=== PATIENT | female | born 1955 | race Caucasian/White ===

== ENCOUNTER 2017-07-21 22:25 | Observation (INO) | payer BC ==
[~2017-07-21] VITALS: Ht 167.6 cm; Wt 65.0 kg
[2017-07-21 22:40] VITALS: RESP 18
--- NOTE | 2017-07-21 22:54 | PD ---
HPI Chief Complaint: Chest Pain Time Seen by Provider: 22:52 Travel History International Travel<30 days: No Contact w/Intl Traveler<30days: No Traveled to known affect area: No History of Present Illness HPI Patient complains of having intermittent chest pressure associated with lightheadedness and radiating to her left jaw since last Sunday. Has approximately 6 days ago, patient states that the last episode was approximately an hour ago and rated as an 8 out of 10 1 of the worst ones that she has had this week. Patient stated that it radiated up to her left jaw and that she felt lightheaded and nauseous along with it. Patient denies any alleviating or aggravating factors. Patient denies any episodes of her previous heart catheterization. All her primary care is in [place] she is is visiting area. Stated allergy to sulfa causes hives Past medical significant for hypothyroidism, cholecystectomy, right shoulder rotator cuff repair, depression and insomnia. PFSH Past Medical History Depression: Yes Diminished Hearing: No Insomnia: Yes Thyroid Disease: Yes (hypothyriodism) Tetanus Vaccination: Unknown Influenza Vaccination: Yes ?: Not LMP: menapause Past Surgical History Cholecystectomy: Yes Social History Alcohol Use: Yes (weekends) Tobacco Use: No Substance Use: No Allergies-Medications (Allergen,Severity, Reaction): Coded Allergies: Sulfa (Sulfonamide Antibiotics) (Verified Allergy, Severe, 07/21/17) hives Review of Systems General / Constitutional: No: Fever Eyes: No: Visual changes HENT: No: Headaches Cardiovascular: Positive: Chest Pain or Discomfort Respiratory: No: Shortness of Breath Gastrointestinal: No: Abdominal Pain Genitourinary: No: Dysuria Musculoskeletal: No: Pain Skin: No Rash Neurologic: No: Weakness Psychiatric: No: Depression Endocrine: No: Polydipsia Hematologic/Lymphatic: No: Easy Bruising Physical Exam Narrative GENERAL: SKIN: Warm and dry. HEAD: Atraumatic. Normocephalic. EYES: Pupils equal and round. No scleral icterus. No injection or drainage. ENT: No nasal bleeding or discharge. Mucous membranes pink and moist. NECK: Trachea midline. No JVD. CARDIOVASCULAR: Regular rate and rhythm. RESPIRATORY: No accessory muscle use. Clear to auscultation. Breath sounds equal bilaterally. GASTROINTESTINAL: Abdomen soft, non-tender, nondistended. . MUSCULOSKELETAL: Extremities without clubbing, cyanosis, or edema. No obvious deformities. NEUROLOGICAL: Awake and alert. No obvious cranial nerve deficits. Motor grossly within normal limits. Five out of 5 muscle strength in the arms and legs. Normal speech. PSYCHIATRIC: Appropriate mood and affect; insight and judgment normal. Data Data Last Documented VS Vital Signs Date Time Temp Pulse Resp B/P (MAP) Pulse Ox O2 Delivery O2 Flow Rate FiO2 07/21/17 23:52 64 16 164/89 (114) 97 Room Air Orders Orders Electrocardiogram (07/21/17 22:52) B-Type Natriuretic Peptide (07/21/17 22:52) Ckmb (Isoenzyme) Profile (07/21/17 22:52) Complete Blood Count With Diff (07/21/17:52) Comprehensive Metabolic Panel (07/21/17:52) D-Dimer (07/21/17:52) Magnesium (Mg) (07/21/17 22:52) Prothrombin Time / Inr (Pt) (07/21/17:52) Act Partial Throm Time (Ptt) (07/21/17:52) Troponin I (07/21/17 22:52) Lipase (07/21/17 22:52) Chest, Single Ap (07/21/17 22:52) Ecg Monitoring (07/21/17:52) Bilateral Bp Monitoring (07/21/17:52) Iv Access Insert/Monitor (07/21/17:52) Oximetry (07/21/17 22:52) Sodium Chloride 0.9% Flush (Ns Flush) (07/21/17 23:00) Aspirin Chew (Aspirin Chew) (07/21/17 23:15) Nitroglycerin 2% Oint (Nitroglycerin 2% (07/21/17 23:15) CKMB (07/21/17 22:59) CKMB% (07/21/17 22:59) Labs Laboratory Tests Test 07/21/17 22:59 White Blood Count 6.0 TH/MM3 Red Blood Count 4.26 MIL/MM3 Hemoglobin 12.9 GM/DL Hematocrit 37.9 % Mean Corpuscular Volume 89.0 FL Mean Corpuscular Hemoglobin 30.4 PG Mean Corpuscular Hemoglobin Concent 34.2 % Red Cell Distribution Width 12.7 % Platelet Count 211 TH/MM3 Mean Platelet Volume 9.2 FL Neutrophils (%) (Auto) 59.0 % Lymphocytes (%) (Auto) 31.7 % Monocytes (%) (Auto) 7.6 % Eosinophils (%) (Auto) 1.1 % Basophils (%) (Auto) 0.6 % Neutrophils # (Auto) 3.5 TH/MM3 Lymphocytes # (Auto) 1.9 TH/MM3 Monocytes # (Auto) 0.5 TH/MM3 Eosinophils # (Auto) 0.1 TH/MM3 Basophils # (Auto) 0.0 TH/MM3 CBC Comment DIFF FINAL Differential Comment Prothrombin Time 10.6 SEC Prothromb Time International Ratio 1.0 RATIO Activated Partial Thromboplast Time 26.0 SEC D-Dimer Quantitative (PE/DVT) LESS THAN 0.19 MG/L FEU Blood Urea Nitrogen 11 MG/DL Creatinine 0.92 MG/DL Random Glucose 129 MG/DL Total Protein 7.6 GM/DL Albumin 4.1 GM/DL Calcium Level 8.5 MG/DL Magnesium Level 2.4 MG/DL Alkaline Phosphatase 64 U/L Aspartate Amino Transf (AST/SGOT) 12 U/L Alanine Aminotransferase (ALT/SGPT) 20 U/L Total Bilirubin 0.4 MG/DL Sodium Level 140 MEQ/L Potassium Level 3.9 MEQ/L Chloride Level 103 MEQ/L Carbon Dioxide Level 27.1 MEQ/L Anion Gap 10 MEQ/L Estimat Glomerular Filtration Rate 62 ML/MIN Total Creatine Kinase 128 U/L Creatine Kinase MB LESS THAN 0.5 NG/ML Troponin I LESS THAN 0.02 NG/ML B-Type Natriuretic Peptide 23 PG/ML Lipase 159 U/L MDM Medical Decision Making Medical Screen Exam Complete: Yes Emergency Medical Condition: Yes Medical Record Reviewed: Yes Interpretation(s) EKG shows normal sinus rhythm, with 69 bpm, normal intervals, there are some minimal ST flattening to minimal depression on the inferior lateral leads but without any concomitant ST elevation pattern. Differential Diagnosis STEMI versus non-STEMI versus pulmonary embolus versus pneumonia versus pneumothorax Narrative Course CBC shows no leukocytosis, no anemia, normal platelet count, no left shift Coagulation profile is within normal limits D-dimer is negative Elect lites are all within normal limits, normal kidney functions, normal liver functions, normal pancreatic functions First set of cardiac enzymes negative, normal beta natruretic peptide Diagnosis Primary Impression: Chest pain rule out HI Admitting Information Admitting Physician Requests: Observation Juanjose Draper MD July 21, 2017 22:54
[2017-07-21] MEDS ORDERED: SODIUM CHLORIDE 0.9% FLUSH 10 ML FLUSH IVF PRN (23:00)
[2017-07-21 23:13] LABS: AUTOMATED NEUTROPHIL # 3.5 TH/MM3 (1.8-7.7); BASOPHIL % 0.6 % (0.0-2.0); EOSINOPHIL # 0.1 TH/MM3 (0-0.4); EOSINOPHIL % 1.1 % (0.0-4.0); HEMATOCRIT 37.9 % (35.0-46.0); HEMOGLOBIN 12.9 GM/DL (11.6-15.3); LYMPH % 31.7 % (9.0-44.0); LYMPHOCYTE # 1.9 TH/MM3 (1.0-4.8); MEAN CORPUSCULAR HEMOGLOBIN 30.4 PG (27.0-34.0); MEAN CORPUSCULAR HGB CONC 34.2 % (32.0-36.0); MEAN PLATELET VOLUME 9.2 FL (7.0-11.0); MONO % 7.6 % (0.0-8.0); MONOCYTE # 0.5 TH/MM3 (0-0.9); PLATELET COUNT 211 TH/MM3 (150-450); RED BLOOD COUNT 4.26 MIL/MM3 (4.00-5.30); RED CELL DISTRIBUTION WIDTH 12.7 % (11.6-17.2)
[2017-07-21] MEDS ORDERED: ASPIRIN 81 MG CHEW TAB PO ONE (23:15)
[2017-07-21] MEDS ORDERED: NITROGLYCERIN 2% OINT 1 GM PACKET TOP ONE (23:15)
[2017-07-21 23:29] LABS: PROTHROMBIN TIME - PATIENT 10.6 SEC (9.8-11.6)
[2017-07-21 23:32] LABS: D-DIMER LESS THAN 0.19 MG/L FEU (0.00-0.50)
[2017-07-21 23:38] LABS: ALBUMIN 4.1 GM/DL (3.4-5.0); ALT (GPT) 20 U/L (10-53); AST (GOT) 12 U/L (15-37); BICARBONATE 27.1 MEQ/L (21.0-32.0); BLOOD UREA NITROGEN 11 MG/DL (7-18); CALCIUM 8.5 MG/DL (8.5-10.1); CHLORIDE 103 MEQ/L (98-107); CREATININE 0.92 MG/DL (0.50-1.00); GLOMERULAR FILTRATION RATE 62 ML/MIN (>89); GLUCOSE,RANDOM 129 MG/DL (74-106); MAGNESIUM 2.4 MG/DL (1.5-2.5); SODIUM (NA) 140 MEQ/L (136-145)
[2017-07-21 23:42] LABS: ALKALINE PHOSPHATASE 64 U/L (45-117); TOTAL BILIRUBIN ADULT 0.4 MG/DL (0.2-1.0); TOTAL PROTEIN 7.6 GM/DL (6.4-8.2); TROPONIN I LESS THAN 0.02 NG/ML (0.02-0.05)
[2017-07-21 23:52] VITALS: BP 164/89; PULSE 64; RESP 16; O2SAT 97
--- NOTE | 2017-07-21 23:52 | RADRPT ---
EXAM DATE: 07/21/2017 11:37 PM EDT AGE/SEX: 61 years / Female INDICATIONS: Chest pain and nausea. CLINICAL DATA: This is the patient's initial encounter. Patient reports that signs and symptoms have been present for 2 weeks and indicates a pain score of 3/10. MEDICAL/SURGICAL HISTORY: None. None. COMPARISON: No prior [facility] exams available for comparison. FINDINGS: A single AP view of the chest demonstrates the lungs to be symmetrically aerated without evidence of mass, infiltrate or effusion. The cardiomediastinal contours are unremarkable. Osseous structures a re intact. CONCLUSION: No evidence of acute cardiopulmonary disease. Electronically signed by: Bill Lowery MD 07/21/2017 11:50 PM EDT
[2017-07-22] MEDS ORDERED: NITROGLYCERIN 0.4 MG SL 25 TABS/BTL SL PRN (00:30)
[2017-07-22] MEDS ORDERED: ASPIRIN 81 MG CHEW TAB PO ONE (00:30)
[2017-07-22] MEDS ORDERED: SODIUM CHLORIDE 0.9% FLUSH 10 ML FLUSH IV FLUSH PRN (00:30)
[2017-07-22 00:34] VITALS: O2SAT 96
[2017-07-22 01:35] VITALS: BP 143/63; PULSE 64; RESP 16; O2SAT 97
[2017-07-22 02:45] LABS: TROPONIN I LESS THAN 0.02 NG/ML (0.02-0.05)
[2017-07-22 03:23] VITALS: BP 109/56; PULSE 63; RESP 16; TEMP 98.4; O2SAT 97
[2017-07-22 08:24] VITALS: BP 122/62; PULSE 65; RESP 19; TEMP 98; O2SAT 97
[2017-07-22] MEDS ORDERED: SODIUM CHLORIDE 0.9% FLUSH 10 ML FLUSH IV FLUSH SCH (09:00)
[2017-07-22] MEDS ORDERED: REGADENOSON INJ 0.4 MG/5 ML SYR ONE (09:47)
--- NOTE | 2017-07-22 09:49 | HHI.HP ---
HPI Primary Care Physician Non-Staff Chief Complaint Chest pain History of Present Illness This is a 61-year-old female that presents to ED via private vehicle with a clamp the chest pressure has been intermittent for 5 days. She points to left lateral chest area to indicate where the discomfort is located. Nothing in particular seems to bring on the pressure. Last a couple hours when it occurs. Usually been at nighttime. She tried Tums which worsen the symptoms. She has been nauseated with the symptoms and yesterday felt lightheaded. She became concerned when she became lightheaded and at that time decided to come into the hospital. Denies shortness of breath. She has had some episodes of sweating with the discomfort but she states she also has hot flashes and is not sure that because of it. She has had cardiac evaluation in the past. States she had a stress test a few years ago. States it started as a treadmill but then they had to convert to a different type of stress test. The second stress test was fine. Has never had a cardiac catheterization. Recently told that her lipid panel is a little bit elevated but no medication at this time. Review of Systems General: Patient denies fevers, chills, and recent travel. HEENT: Patient denies headache, sore throat, difficulty swallowing. Cardiovascular: Has the chest discomfort as mentioned above. Denies sensation of heart beating rapidly or irregularly. No syncope. Possible diaphoresis. Respiratory: Denies shortness of breath or inspirational chest discomfort. Denies coughing wheezing or hemoptysis. GI: She has been intermittently nauseous. Patient denies vomiting, diarrhea, abdominal pain, bloody stools. Musculoskeletal: Patient denies joint pain or edema. Denies calf pain or edema. Neurovascular: Patient denies numbness, tingling, weakness in extremities. Denies headache. Endocrine: Denies polyuria and polydipsia. Hematologic: Denies easy bruising. Skin: Denies rash or itching. Past Family Social History Allergies: Coded Allergies: Sulfa (Sulfonamide Antibiotics) (Verified Allergy, Severe, 07/21/17) hives Past Medical History Recently told of hyperlipidemia but currently no medication. Hypothyroidism. Denies hypertension, diabetes, and known CAD. Past Surgical History Cholecystectomy. Right shoulder rotator cuff repair. Active Ordered Medications Current Medications Medications (Trade) Dose Ordered Sig/Venkatesh Route Start Time Stop Time Status Last Admin (NS Flush) 2 ml UNSCH PRN IVF 07/21/17 23:00 07/21/17 23:18 (NS Flush) 2 ml UNSCH PRN IV FLUSH 07/22/17 00:30 (NS Flush) 2 ml BID IV FLUSH 07/22/17 09:00 (Nitrostat Sl) 0.4 mg Q5M PRN SL 07/22/17 00:30 Family History Denies family history of CAD. Social History Quit smoking about 25 years ago. She smoked approximately three-quarter pack of cigarettes daily prior to that for almost 20 years. States she has a few beers and a couple mixed drinks with vodka on the weekends. Denies illicit drug use. Physical Exam Vital Signs Vital Signs Date Time Temp Pulse Resp B/P (MAP) Pulse Ox O2 Delivery O2 Flow Rate FiO2 07/22/17 08:24 98.0 65 19 122/62 (82) 97 07/22/17 03:23 98.4 63 16 109/56 (73) 97 07/22/17 01:35 64 16 143/63 (89) 97 Room Air 07/22/17 00:34 96 07/21/17 23:52 64 16 164/89 (114) 97 Room Air 07/21/17 22:40 18 Physical Exam GENERAL: This is a well-nourished, well-developed patient, in no apparent distress. Patient speaks in clear complete sentences. Patient is pleasant. HEENT: Head is atraumatic and normocephalic. Neck is supple without lymphadenopathy and trachea is midline. No JVD or carotid bruits. CARDIOVASCULAR: Regular rate and rhythm without murmurs, gallops, or rubs. RESPIRATORY: Clear to auscultation. Breath sounds equal bilaterally. No wheezes , rales, or rhonchi. Chest wall is nontender. No use of accessory muscles. GASTROINTESTINAL: Abdomen is nontender, nondistended. Abdomen soft. No obvious pulsatile mass or bruit. No CVA tenderness. Strong femoral pulses bilaterally. Normal bowel sounds in all quadrants. MUSCULOSKELETAL: Patient is moving upper and lower extremities freely. No calf tenderness or edema, no Homans sign. Strong pulses in upper and lower extremities. NEUROLOGICAL: Patient is alert and oriented. Cranial nerves 2-12 are grossly intact. No focal deficits and speech is clear. SKIN: No rash and turgor is normal. Laboratory Laboratory Tests Test 07/21/17 22:59 07/22/17 02:15 07/22/17 05:00 White Blood Count 6.0 Red Blood Count 4.26 Hemoglobin 12.9 Hematocrit 37.9 Mean Corpuscular Volume 89.0 Mean Corpuscular Hemoglobin 30.4 Mean Corpuscular Hemoglobin Concent 34.2 Red Cell Distribution Width 12.7 Platelet Count 211 Mean Platelet Volume 9.2 Neutrophils (%) (Auto) 59.0 Lymphocytes (%) (Auto) 31.7 Monocytes (%) (Auto) 7.6 Eosinophils (%) (Auto) 1.1 Basophils (%) (Auto) 0.6 Neutrophils # (Auto) 3.5 Lymphocytes # (Auto) 1.9 Monocytes # (Auto) 0.5 Eosinophils # (Auto) 0.1 Basophils # (Auto) 0.0 CBC Comment DIFF FINAL Differential Comment Prothrombin Time 10.6 Prothromb Time International Ratio 1.0 Activated Partial Thromboplast Time 26.0 D-Dimer Quantitative (PE/DVT) LESS THAN 0.19 Blood Urea Nitrogen 11 Creatinine 0.92 Random Glucose 129 Total Protein 7.6 Albumin 4.1 Calcium Level 8.5 Magnesium Level 2.4 Alkaline Phosphatase 64 Aspartate Amino Transf (AST/SGOT) 12 Alanine Aminotransferase (ALT/SGPT) 20 Total Bilirubin 0.4 Sodium Level 140 Potassium Level 3.9 Chloride Level 103 Carbon Dioxide Level 27.1 Anion Gap 10 Estimat Glomerular Filtration Rate 62 Total Creatine Kinase 128 119 Creatine Kinase MB LESS THAN 0.5 LESS THAN 0.5 Troponin I LESS THAN 0.02 LESS THAN 0.02 LESS THAN 0.02 B-Type Natriuretic Peptide 23 Lipase 159 Result Diagram: 07/21/17225807/21/172258 Imaging Last 48 hours Impressions Chest X-Ray 07/21/172251 Signed Impressions: CONCLUSION: No evidence of acute cardiopulmonary disease. Course EKGs are sinus rhythm with nonspecific lateral ST-T changes. Caprini VTE Risk Assessment Caprini VTE Risk Assessment: No/Low Risk (score <= 1) Caprini Risk Assessment Model Point Value = 1 Point Value = 2 Point Value = 3 Point Value = 5 Age 41-60 Minor surgery BMI > 25 kg/m2 Swollen legs Varicose veins or History of unexplained or recurrent spontaneous Oral contraceptives or hormone replacement Sepsis (< 1 month) Serious lung disease, including pneumonia (< 1 month) Abnormal pulmonary function Acute myocardial infarction Congestive heart failure (< 1 month) History of inflammatory bowel disease Medical patient at bed rest Age 61-74 Arthroscopic surgery Major open surgery (> 45 min) Laparoscopic surgery (> 45 min) Malignancy Confined to bed (> 72 hours) Immobilizing plaster cast Central venous access Age >= 75 History of VTE Family history of VTE Factor V Leiden Prothrombin [id number] Lupus anticoagulant Anticardiolipin antibodies Elevated serum homocysteine Heparin-induced thrombocytopenia Other congenital or acquired thrombophilia Stroke (< 1 month) Elective arthroplasty Hip, pelvis, or leg fracture Acute spinal cord injury (< 1 month) Prophylaxis Regimen Total Risk Factor Score Risk Level Prophylaxis Regimen 0-1 Low Early ambulation 2 Moderate Order ONE of the following: *Sequential Compression Device (SCD) *Heparin 5000 units SQ BID 3-4 Higher Order ONE of the following medications: *Heparin 5000 units SQ TID *Enoxaparin/Lovenox 40 mg SQ daily (WT < 150 kg, CrCl > 30 mL/min) *Enoxaparin/Lovenox 30 mg SQ daily (WT < 150 kg, CrCl > 10-29 mL/min) *Enoxaparin/Lovenox 30 mg SQ BID (WT < 150 kg, CrCl > 30 mL/min) AND/OR *Sequential Compression Device (SCD) 5 or more Highest Order ONE of the following medications: *Heparin 5000 units SQ TID (Preferred with Epidurals) *Enoxaparin/Lovenox 40 mg SQ daily (WT < 150 kg, CrCl > 30 mL/min) *Enoxaparin/Lovenox 30 mg SQ daily (WT < 150 kg, CrCl > 10-29 mL/min) *Enoxaparin/Lovenox 30 mg SQ BID (WT < 150 kg, CrCl > 30 mL/min) AND *Sequential Compression Device (SCD) Assessment and Plan Assessment and Plan * Chest pain: Patient has had serial cardiac enzymes and EKGs for ruling out purposes. She will undergo a Lexiscan. She will be seen by Dr. Ray of cardiology in the chest pain center. Patient likely to be discharged home if her stress test is nonischemic with instructions to follow-up with PCP. Return to ED for interval issues. * Hypothyroidism: Patient will resume her medication. Patient is stable at this time. She is agreeable to this plan. Nilson Monte July 22, 2017 09:49
--- NOTE | 2017-07-22 12:34 | RADRPT ---
EXAM DATE: 07/22/2017 12:22 PM EDT AGE/SEX: 61 years / Female INDICATIONS:Angina. . Chest pain radiating to the jaw with lightheadedness. CLINICAL DATA: This is the patient's initial encounter. Patient reports that signs and symptoms have been present for 4 - 6 days and indicates a pain score of 8/10. MEDICAL/SURGICAL HISTORY: Hypercholesterolemia. Cholecystectomy. COMPARISON: No prior [facility] exams available for comparison. DOSE: 26.4 mCi Tc 99m Myoview at stress 8.8 mCi [id number] at rest 0.4 mg Lexiscan STRESS SYMPTOMS: Dyspnea. EJECTION FRACTION: 64 % TECHNIQUE: The patient underwent pharmacologic stress with infusion of prescribed dose. Continuous ECG tracing was monitored during stress. Gated SPECT imaging was performed after stress and conventi onal SPECT imaging was performed at rest. The examination was performed on a SPECT/CT scanner, both attenuation and non-corrected datasets were reviewed. FINDINGS: Distribution: The maximum perfused segment at stress is in the lateral wall. Perfusion Study: The pattern of perfusion at stress is within normal limits. Gated Study: There are intact wall motion and wall thickening without hypokinetic or dyskinetic segm ents. The ejection fraction is calculated at 64%. RISK CATEGORY: Low (<1% Annual Motality Rate) CONCLUSION: 1. Unremarkable myocardial perfusion exam Electronically signed by: Messi Wade MD 07/22/2017 12:33 PM EDT
[2017-07-22] MEDS ORDERED: AMBI5TAB PO (13:49)
[2017-07-22] MEDS ORDERED: SYNT25TA PO (13:49)
[2017-07-22] MEDS ORDERED: BUPR150CR PO (13:49)
--- NOTE | 2017-07-22 13:56 | HHI.DCPOC ---
Discharge Care Plan Diagnosis: (1) Chest pain Goals to Promote Your Health * To prevent worsening of your condition and complications * To maintain your health at the optimal level Directions to Meet Your Goals Take your medications as prescribed Follow your dietary instruction Follow activity as directed Keep your appointments as scheduled Take your immunizations and boosters as scheduled If your symptoms worsen call your PCP, if no PCP go to Urgent Care Center or Emergency Room Smoking is Dangerous to Your Health. Avoid second hand smoke Call the 24-hour hour crisis hotline for domestic abuse at Nilson Monte July 22, 2017 13:56
--- NOTE | 2017-07-22 15:12 | TR ---
Date Performed: 07/22/2017 Time Performed: 10:22:17 DOCTOR: Arpan Ray DRUG LIST: CLINICAL HISTORY: REASON FOR TEST: CHEST PAIN REASON FOR ENDING: OBSERVATION: CONCLUSION: COMMENTS: Lexiscan stress test was performed under standard four minute protocol. Radionuclide was injected one minute prior to ending the test. No electrocardiographic abormalities were present t o suggest ischemia. Nuclear imaging and interpretation are pending.
--- NOTE | 2017-07-22 15:13 | EKG ---
Date Performed: 07/22/2017 Time Performed: 02:14:30 PTAGE: 61 years EKG: Sinus rhythm NORMAL ECG PREVIOUS TRACING : 07/21/2017 22.54 Since previous tracing, no significant change noted DOCTOR: Arpan Ray Interpretating Date/Time 07/22/2017 15:11:58
--- NOTE | 2017-07-22 15:15 | EKG ---
Date Performed: 07/21/2017 Time Performed: 22:54:45 PTAGE: 61 years EKG: Sinus rhythm MINIMAL ST DEPRESSION BORDERLINE ECG NO PREVIOUS TRACING DOCTOR: Arpan Ray Interpretating Date/Time 07/22/2017 15:12:57
--- NOTE | 2017-07-22 15:18 | EKG ---
Date Performed: 07/22/2017 Time Performed: 04:58:23 PTAGE: 61 years EKG: Sinus rhythm NORMAL ECG PREVIOUS TRACING : 07/22/2017 02.14 Since previous tracing, no significant change noted DOCTOR: Arpan Ray Interpretating Date/Time 07/22/2017 15:17:04
== END 2017-07-22 16:09 | disposition home or self-care (01) ==
LOC: NEPE 22:25 → NEDA 07-22 00:29 → NEPFCDU 07-22 01:50
DX: R07.89 Other chest pain (principal); R42 Dizziness and giddiness; R11.0 Nausea; E78.5 Hyperlipidemia, unspecified; E03.9 Hypothyroidism, unspecified; I20.9 Angina pectoris, unspecified; E78.00 Pure hypercholesterolemia, unspecified; G47.00 Insomnia, unspecified; Z87.891 Personal history of nicotine dependence
CPT/HCPCS: 71045; 78452; 80053; 82550; 82552; 83690; 83735; 83880; 84484; 85025; 85379; 85610; 85730; 93005; 93017; A9502; G0378; J2785